=== PATIENT | male | born 1960 | race Caucasian/White ===

== ENCOUNTER → 2020-07-25 09:57 | Outpatient (BNVA) | payer SELFPAY | PROVIDERS: PCP Internal Medicine; Visit Provider Physician Assistant | DX: Z02.79 Encounter for issue of other medical certificate (principal) ==

== ENCOUNTER 2021-05-18 06:12 | Outpatient (REF) | payer BC, SELFPAY ==
[2021-05-18 11:28] LABS: MANUAL DIFF FLAG NO
[2021-05-18 11:36] LABS: Basophils Percent Auto 0.6 % (0-2); Eosinophils Absolute Auto 0.1 X10*3/uL (0.0-0.4); Eosinophils Percent Auto 2.7 % (0-4); Hematocrit 46.6 % (42-52); Hemoglobin 14.8 g/dl (14.0-18.0); Imm Gran Abs Auto 0.05 X10*3/uL (0.00-0.03); Lymphocytes Absolute Auto 1.3 X10*3/uL (1.2-4.9); Lymphocytes Percent Auto 24.7 % (20-40); Mean Corpuscular HGB Conc 31.8 g/dl (31.0-36.0); Mean Corpuscular Hemoglobin 29.2 pg (27.0-33.0); Mean Corpuscular Volume 92.1 fL (80-98); Mean Platelet Volume 10.4 fL (9.4-12.4); Monocytes Absolute Auto 0.6 X10*3/uL (0.1-1.2); Monocytes Percent Auto 11.7 % (2-11); Neutrophils Percent Auto 59.3 % (45-73); Platelet Count 274 X10*3/uL (160-400); Red Blood Count 5.06 X10*6/uL (4.60-5.80); Red Cell Distribution Width 13.4 % (11.0-16.0); White Blood Count 5.1 X10*3/uL (4.8-10.8)
[2021-05-18 11:46] LABS: Alanine Aminotransferase 27 U/L (0-40); Albumin Level 3.9 g/dL (3.5-5.0); Alkaline Phosphatase 76 U/L (39-117); Anion Gap 10 (12-20); Aspartate Amino Transferase 19 U/L (5-37); Bilirubin Total 0.6 mg/dL (0.0-1.0); Blood Urea Nitrogen 14 mg/dL (9-16); Calcium 9.1 mg/dL (8.4-10.2); Carbon Dioxide 29 mmol/L (22-29); Chloride 107 mmol/L (96-108); Cholesterol 202 mg/dL; Estimated Glomerular Filt Rate > 60; Glucose Fasting 95 mg/dL (60-99); HDL Cholesterol 56 mg/dL; LDL Cholesterol Calculated 132 mg/dl; Potassium 4.4 mmol/L (3.3-5.1); Sodium 142 mmol/L (135-145); Triglycerides 74 mg/dL
[2021-05-18 12:14] LABS: Prostate Specific Antigen Scr < 0.05 ng/mL (<0.05-4.0)
== END 2021-05-18 06:13 | disposition home or self-care (01) ==
LOC: HO.HMGCLDS 06:12
PROVIDERS: PCP Internal Medicine; Visit Provider Internal Medicine
DX: Z00.00 Encounter for general adult medical examination without abnormal findings (principal); E11.9 Type 2 diabetes mellitus without complications; E03.9 Hypothyroidism, unspecified; R35.1 Nocturia; Z12.5 Encounter for screening for malignant neoplasm of prostate
CPT/HCPCS: 36415; 80053; 80061; 84153; 84443; 85025

== ENCOUNTER 2022-07-09 06:56 | Outpatient (REF) | payer BC, SELFPAY ==
[2022-07-09 11:16] LABS: MANUAL DIFF FLAG NO
[2022-07-09 11:34] LABS: Basophils Percent Auto 0.9 % (0-2); Eosinophils Absolute Auto 0.1 X10*3/uL (0.0-0.4); Eosinophils Percent Auto 2.4 % (0-4); Hematocrit 45.1 % (42.0-52.0); Hemoglobin 14.9 g/dl (14.0-18.0); Imm Gran Abs Auto 0.05 X10*3/uL (0.00-0.03); Imm Gran Pct Auto 1.1 % (0.0-0.4); Lymphocytes Absolute Auto 1.1 X10*3/uL (1.2-4.9); Lymphocytes Percent Auto 23.5 % (20-40); Mean Corpuscular Hemoglobin 30.3 pg (27.0-33.0); Mean Corpuscular Volume 91.9 fL (80.0-98.0); Mean Platelet Volume 10.2 fL (9.4-12.4); Monocytes Absolute Auto 0.6 X10*3/uL (0.1-1.2); Neutrophils Absolute Auto 2.8 x10*3/uL (2.0-8.3); Neutrophils Percent Auto 60.1 % (45-73); Platelet Count 271 X10*3/uL (160-400); Red Blood Count 4.91 X10*6/uL (4.60-5.80); Red Cell Distribution Width 12.9 % (11.0-16.0); White Blood Count 4.7 X10*3/uL (4.8-10.8)
[2022-07-09 11:59] LABS: Alanine Aminotransferase 19 U/L (0-40); Alkaline Phosphatase 76 U/L (39-117); Anion Gap 13 (12-20); Aspartate Amino Transferase 18 U/L (5-37); Bilirubin Total 0.4 mg/dL (0.0-1.0); Blood Urea Nitrogen 18 mg/dL (9-16); Calcium 9.2 mg/dL (8.4-10.2); Carbon Dioxide 25 mmol/L (22-29); Chloride 107 mmol/L (96-108); Cholesterol 193 mg/dL; Estimated Glomerular Filt Rate > 60; Glucose Fasting 101 mg/dL (60-99); HDL Cholesterol 59 mg/dL; LDL Cholesterol Calculated 121 mg/dl; Potassium 4.4 mmol/L (3.3-5.1); Sodium 141 mmol/L (135-145); Total Protein 6.1 g/dL (6.5-8.0); Triglycerides 67 mg/dL
[2022-07-09 12:06] LABS: Prostate Specific Antigen Scr < 0.05 ng/mL (<0.05-4.0)
== END 2022-07-09 06:57 | disposition home or self-care (01) ==
LOC: HO.HMGCLDS 06:56
PROVIDERS: PCP Internal Medicine; Visit Provider Internal Medicine
DX: Z00.00 Encounter for general adult medical examination without abnormal findings (principal); E78.5 Hyperlipidemia, unspecified; I10 Essential (primary) hypertension; Z13.0 Encounter for screening for diseases of the blood and blood-forming organs and certain disorders involving the immune mechanism; Z12.5 Encounter for screening for malignant neoplasm of prostate
CPT/HCPCS: 36415; 80053; 80061; 84153; 85025

== ENCOUNTER 2022-12-24 06:23 | Day surgery (SDC) | payer BC, SELFPAY ==
--- NOTE | 2022-12-21 13:36 | P.CONAN_ITS ---
Documented by User: Ca Valente NP 12/21/22 13:37 HPI - Anesthesia Eval Consult details Narrative: 62yo M for Colonoscopy PMFSH Active Problems Active Problems: All Active Problems (Updated 05/28/22 @ 10:23 by Alberto Medellin MD) Physical exam (Acute) Erectile dysfunction (Acute) Chronic GERD (Acute) Past Medical History Medical History Chronic GERD Family History Family History Mother No problems noted. Father No problems noted. Surgical History Surgical History (Updated 12/24/22 @ 07:27 by Carolynn Browne MD) History of appendectomy History of bladder surgery History of inguinal hernia repair History of prostatectomy Hx of colonoscopy Social History Social History Housing: House Patient Tobacco Use Status: Former Tobacco user Tobacco use type: Cigarette e-Cigarette/Vaping Use: Never Used Second Hand Smoke Exposure: No Are you DNR?: No Advance Directives: No Advance Directives Information Provided: Yes Nutrition Risks: No Nutritional Risk service: Yes Current occupational status: employed Cognitive needs: No Hearing needs: No Vision needs: No Meds Allergies Allergy/AdvReac Type Severity Reaction Status Date / Time Penicillins [PENICILLINS] Allergy Severe ANAPHYLAXIS Verified 12/24/22 05:56 Home Medications Medication Instructions Recorded Confirmed Last Taken Type antiarthritic combination no.2 900 1,500 mg PO 05/17/21 05/28/22 Unknown History mg tablet (glucosamine-chondroitin) potassium gluconate 595 mg (99 mg) mg PO 05/17/21 05/28/22 Unknown History tablet,extended release naproxen 12/21/22 12/21/22 Unknown History Exam Exam Date and Time: December 21, 2022 1336 Pertinent Lab Results Pertinent Lab Results: Laboratory Tests 07/09/22 07/09/22 07:01 07:01 WBC 4.7 L Hgb 14.9 Hct 45.1 Plt Count 271 Sodium 141 Potassium 4.4 Chloride 107 Carbon Dioxide 25 BUN 18 H Creatinine 1.13 Assessment and Plan Assessment Anesthesia Assessment: Chart Reviewed Documented by User: Carolynn Browne MD 12/24/22 07:30 [facility] Past Medical History Medical History Chronic GERD Family History Family History Mother No problems noted. Father No problems noted. Family history of problems with anesthesia: No Surgical History Surgical History (Updated 12/24/22 @ 07:27 by Carolynn Browne MD) History of appendectomy History of bladder surgery History of inguinal hernia repair History of prostatectomy Hx of colonoscopy History of Problems with Anesthesia: No Social History Social History Housing: House Patient Tobacco Use Status: Former Tobacco user Tobacco use type: Cigarette e-Cigarette/Vaping Use: Never Used Second Hand Smoke Exposure: No Are you DNR?: No Advance Directives: No Advance Directives Information Provided: Yes Nutrition Risks: No Nutritional Risk service: Yes Current occupational status: employed Cognitive needs: No Hearing needs: No Vision needs: No Meds Allergies Allergy/AdvReac Type Severity Reaction Status Date / Time Penicillins [PENICILLINS] Allergy Severe ANAPHYLAXIS Verified 12/24/22 05:56 Home Medications Medication Instructions Recorded Confirmed Last Taken Type antiarthritic combination no.2 900 1,500 mg PO 05/17/21 05/28/22 Unknown History mg tablet (glucosamine-chondroitin) potassium gluconate 595 mg (99 mg) mg PO 05/17/21 05/28/22 Unknown History tablet,extended release naproxen 12/21/22 12/21/22 Unknown History Exam Height,Weight and Vital Signs: Height 5 ft 7 in Weight 69.4 kg Vital Signs Temp Pulse Resp BP Pulse Ox O2 Del Method 12/24/22 06:53 97.9 F 62 18 124/77 98 Room Air Airway Mallampati Class: II TM Dist: >3cm Neck ROM: Full Loose/Missing/Broken Teeth: No (Denies broken, loose, missing teeth) Heart: RRR Lungs: CTAB Assessment and Plan Assessment Anesthesia Assessment: Anesthesia Plan Discussed Final Anesthetic Review Family History of Problems with Anesthesia: No History of Problems with Anesthesia: No NPO: Yes ASA Class: II Final Preanesthetic Review: No Changes in Pt Med Stat, Meds/Allgs Chart Reviewed, Consent Obtained/Reviewed and Anes Risks/Benef Reviewed Patient Risk: Low Procedure Risk: Low Assessment/Block/Sedation in SS: Assess/Block/Sedation-SS Anesthetic Plan Anesthetic Plan: MAC: Disposition: Standard PACU
[2022-12-24 06:15] VITALS: BMI 23.9
[2022-12-24] MEDS: Lactated Ringers 1,000 ML 100 ML IVCONT (06:28)
[2022-12-24 06:53] VITALS: BP 124/77; PULSE 62; RESP 18; TEMP 36.6; O2SAT 98
--- NOTE | 2022-12-24 08:24 | PM.OP ---
Brief Operative Note Date of Service: 12/24/22 Pre-op diagnosis: Screening Post-op diagnosis: other (Diverticulosis) Procedure: Colonoscopy to the cecum Surgeon: Manuel Romano Anesthesia: MAC Was an Group Art Supervisor used for this Procedure?: No Estimated blood loss (mL): 0 Pathology: none sent Condition: stable Disposition: PACU
[2022-12-24 08:27] VITALS: BP 108/64; PULSE 77; RESP 16; TEMP 36.6; O2SAT 97
[2022-12-24 08:42] VITALS: BP 122/71; PULSE 51; RESP 16; TEMP 36.6; O2SAT 98
--- NOTE | 2022-12-24 09:22 | OP_ITS ---
SURGEON: Manuel Romano MD PREOPERATIVE DIAGNOSIS: POSTOPERATIVE DIAGNOSIS: PROCEDURE PERFORMED: Colonoscopy to the cecum. ESTIMATED BLOOD LOSS: COMPLICATIONS: ANESTHESIA: Monitored anesthesia care. ASSISTANTS: SPECIMENS: PREOPERATIVE DIAGNOSES: Personal history of tubular adenoma of the colon, family history of colon cancer and colorectal cancer screening. PREOPERATIVE DIAGNOSES: Personal history of tubular adenoma of the colon, family history of colon cancer, colorectal cancer screening, diverticulosis and internal hemorrhoids. INDICATION: The patient presents for followup of personal history of tubular adenoma of the colon, family history of colon cancer and need for colorectal cancer screening. Full consent has been obtained from him for this, including risks of bleeding and perforation. DESCRIPTION OF PROCEDURE: The patient was placed in the left lateral decubitus position. The digital rectal exam revealed no abnormalities. The Olympus video pediatric colonoscope was then entered into the rectum and advanced easily to the cecum. Once in the cecum, I did identify normal-appearing cecal pouch with appendiceal orifice and normal-appearing ileocecal valve. The entire cecum was well visualized and appeared normal. The ileocecal valve appeared normal. There was translumination in the light deep in the right lower quadrant. The scope was slowly withdrawn, assessing all mucosal surfaces carefully. Preparation was excellent. I did not visualize any sign of polyps, colitis nor angiodysplasia. There was a mild amount of sigmoid diverticulosis. In the rectum, the scope was retroflexed visualizing internal hemorrhoids, but no other pathology. The rectal mucosa appeared normal. The scope was straightened and withdrawn from the patient. He tolerated the procedure well and was returned to the recovery area in stable condition. IMPRESSION: 1. Diverticulosis. 2. Internal hemorrhoids. PLAN: I would recommend a repeat colonoscopy in 5 years for further screening and surveillance. He would otherwise see me on a p.r.n. basis. This has been discussed with his . MD ARNULFO Roe/PAOLO / [id number] MTDMahamed
== END 2022-12-24 09:10 | disposition home or self-care (01) ==
PROVIDERS: PCP Internal Medicine; Visit Provider Internal Medicine
PROC: 0DJD8ZZ Inspection of Lower Intestinal Tract, Via Natural or Artificial Opening Endoscopic (ICD-10-PCS; CPT 45378; principal; 2022-12-24 07:30)
DX: Z12.11 Encounter for screening for malignant neoplasm of colon (principal); Z86.010 Personal history of colon polyps; Z80.0 Family history of malignant neoplasm of digestive organs; K57.30 Diverticulosis of large intestine without perforation or abscess without bleeding; K64.8 Other hemorrhoids; K21.9 Gastro-esophageal reflux disease without esophagitis; Z85.46 Personal history of malignant neoplasm of prostate; Z90.79 Acquired absence of other genital organ(s); Z79.899 Other long term (current) drug therapy; Z79.1 Long term (current) use of non-steroidal anti-inflammatories (NSAID); Z88.0 Allergy status to penicillin; Z87.891 Personal history of nicotine dependence
CPT/HCPCS: 45378

== ENCOUNTER 2023-04-29 13:25 | Outpatient (AMB) | payer BC, SELFPAY ==
--- NOTE | 2023-04-29 13:30 | MHC.PC.OV ---
Vital Signs 04/29/23 13:33 Height 5 ft 7 in Weight 147 lb 6 oz BMI 23.1 BP 110/70 Blood Pressure Location Lt brachial Position Sitting Pulse 67 Pulse Source Pulse Oximeter Pulse Oximetry (%) 96 Oxygen Delivery Method Room Air Intake Visit Reasons: Burning Sensation While Urinating Intake Note: Patient is here today for burning sensation while urinating, and urgent frequency. Livestock Handler Required: No Proposal Director: Not Required per policy Accompanied by: Self / Same As Patient Allergies Penicillins [PENICILLINS] Allergy (Severe, Verified 04/29/23 13:33) ANAPHYLAXIS Medication List - Last Reconciled 04/29/23 by Alberto Medellin MD antiarthritic combination no.2 (glucosamine-chondroitin) 1,500 mg PO ciprofloxacin HCl (Cipro) 250 mg PO BID clotrimazole-betamethasone 1-0.05 % 1 appl topical BID 2 weeks doxycycline hyclate 100 mg PO DAILY [naproxen ] omeprazole 20 mg PO QAM potassium gluconate ER mg PO sildenafil 100 mg PO DAILY PRN triamcinolone acetonide 0.1% 1 appl topical DAILY Tobacco use date assessed: 04/29/23 Dental Screening Dental Screen Date: 04/29/23 Did you have a dental visit in the last 12 months?: Yes Did you have a dental problem in the last 6 months where you did not have access to dental care?: No Was dental information given to patient?: Patient has dentist HPI Burning Sensation While Urinating HPI Details dysuria for 2 days [facility] Medical History (Updated 04/29/23 @ 13:46 by Alberto Medellin MD) Chronic GERD Surgical History History of appendectomy History of bladder surgery History of inguinal hernia repair History of prostatectomy Hx of colonoscopy Family History Mother No problems noted. Father No problems noted. Social History Housing: House Patient Tobacco Use Status: Former Tobacco user Tobacco use type: Cigarette e-Cigarette/Vaping Use: Never Used Second Hand Smoke Exposure: No service: Yes Current occupational status: employed Cognitive needs: No Hearing needs: No Vision needs: Yes (glasses) Questionnaire PHQ-9 Over the last 2 weeks, how often have you been bothered by any of the following problems? 1. Little interest or pleasure in doing things: not at all 2. Feeling down, depressed, or hopeless: not at all 3. Trouble falling or staying asleep, or sleeping too much: not at all 4. Feeling tired or having little energy: not at all 5. Poor appetite or overeating: not at all 6. Feeling bad about yourself - or that you are a failure or have let yourself or your family down: not at all 7. Trouble concentrating on things, such as reading the newspaper or watching television: not at all 8. Moving or speaking so slowly that other people could have noticed. Or the opposite - being so fidgety or restless that you have been moving around a lot more than usual: not at all 9. Thoughts that you would be better off or of hurting yourself in some way: not at all Total score: 0 Depression Screening Interpretation: Negative Source: Developed by Drs. Manuel Sparks, Sarina Garcia, Ralph Valencia and colleagues, with an educational robert from [employer]. Thrive Questionnaire Date Thrive assessed: 04/29/23 I am a: Patient What is your living situation today?: I have a steady place to live Within the past 12 months, did the food you bought not last and you didn't have the money to get more?: Never true Within the past 12 months, did you worry whether your food would run out before you got money to buy more?: Never true Do you have trouble paying for medicines?: No Do you have trouble getting transportation to medical appointments?: No Do you have trouble paying your heating and electricity bill?: No Do you have trouble taking care of your child, family member or friend?: No Do you have trouble with day-to-day activities such as bathing, preparing meals, shopping, managing finances, etc.?: No Are you currently unemployed and looking for a job?: No Are you interested in more education?: No Currently or been in a relationship where the following occur: no concerns reported AUDIT C Alcohol Use Questionnaire (AUDIT-C) 1. How often do you have a drink containing alcohol?: Never Total Score: 0 TAMIA-7 AMB Questionnaire TAMIA-7 Date TAMIA - 7 assessed: 04/29/23 Feeling nervous, anxious, or on edge: 0 = Not at all Not being able to stop or control worryin = Not at all Worrying too much about different things: 0 = Not at all Trouble relaxin = Not at all Being so restless that it is hard to sit still: 0 = Not at all Becoming easily annoyed or irritable: 0 = Not at all Feeling afraid as if something awful might happen: 0 = Not at all Total TAMIA-7 score (0-4 normal; 5-9 mild; 10-14 moderate; 15-21 severe): 0 Source: Developed by Drs. Manuel Sparks, Sarina Garcia, Ralph Valencia and colleagues, with an educational robert from [employer]. Review of Systems Const Denies chills, Denies headache(s) and Denies weight loss ENT Denies headache(s) Card Denies chest pain, Denies syncope, Denies irregular heart rhythm and Denies dyspnea Resp Denies chest congestion, Denies cough and Denies dyspnea GI Denies abdominal pain, Denies change in stool character, Denies nausea and Denies vomiting Musc Denies deformity and Denies joint swelling Neuro Denies syncope and Denies headache(s) Physical exam (Primary Care) Vital Signs: Last Vital Signs Pulse 67 04/29/23 13:33 BP 110/70 04/29/23 13:33 Pulse Ox 96 04/29/23 13:33 Oxygen Delivery Method Room Air 04/29/23 13:33 BMI result Body Mass Index 23.1 Tobacco/Smoking Status: Tobacco use Status Tobacco use date assessed 04/29/23 04/29/23 13:38 Patient Tobacco Use Status Former Tobacco user 04/29/23 13:38 Tobacco use type Cigarette 04/29/23 13:38 e-Cigarette/Vaping Use Never Used 04/29/23 13:38 PHQ-9: PHQ-9 Score PHQ-9: Total score 0 04/29/23 13:38 Depression Screening Interpretation: Negative Thrive Assessment: Date of Thrive Assessment Date Thrive assessed 04/29/23 04/29/23 13:38 Currently or been in a relationship where the following occur: no concerns reported Const General: cooperative, healthy appearing and no acute distress Orientation/consciousness: oriented to person, oriented to place and oriented to time HENMT Head: Yes normal to inspection, Yes normocephalic and Yes atraumatic Mouth: Normal oral and palatal mucosa present and tongue normal Throat: Yes posterior oropharynx normal and Yes uvula midline Eyes General: appearance normal, both eyes and all related structures Neck Neck: Yes normal visual inspection, Yes full ROM and Yes no lymphadenopathy Thyroid: Thyroid normal Carotids: normal carotid upstroke Chest Chest palpation & inspection: normal inspection of the chest Resp Effort & Inspection: normal respiratory effort and able to speak in complete sentences Auscultation: clear to auscultation bilaterally Cardio Jugular venous distension: no JVD Palpation: normal PMI Rate: regular rate Rhythm: regular rhythm Heart sounds: S1 normal heart sound present and S2 normal heart sound present GI Inspection: Yes normal to inspection Palpation (GI): Soft to palpation and No hepatosplenomegaly present Auscultation: normal bowel sounds General: Yes no CVA tenderness Back/Spine/Pelvis Back: no CVA tenderness Skin General skin exam: no rashes or lesions noted Neuro General: oriented to person, oriented to place and oriented to time Extrem General: Yes normal to inspection and Yes full ROM Assessment and Plan Assessment & Plan (1) UTI (urinary tract infection): Code(s): N39.0 - Urinary tract infection, site not specified Plan: culture and rx Orders: Orders Urine Culture Today N39.0 - Urinary tract infection, site not specified Medications: New ciprofloxacin HCl (Cipro) 250 mg PO BID 10 tabs 0RF Coding Level of Care Code Est Pt Level 3 (37525) Diagnoses UTI (urinary tract infection) N39.0
[2023-04-29 13:33] VITALS: BP 110/70; PULSE 67; O2SAT 96; BMI 23.1
== END 2023-04-29 14:08 | disposition home or self-care (01) ==
PROVIDERS: PCP Internal Medicine; Visit Provider Internal Medicine
DX: N39.0 Urinary tract infection, site not specified (principal)
CPT/HCPCS: 99213

== ENCOUNTER 2023-04-29 13:51 | Outpatient (REF) | payer BC, SELFPAY | END 2023-04-29 13:52 | disposition home or self-care (01) | LOC: HO.LAB 13:51 | PROVIDERS: PCP Internal Medicine; Visit Provider Internal Medicine | DX: N39.0 Urinary tract infection, site not specified (principal) | CPT/HCPCS: 87086 ==

== ENCOUNTER 2023-06-03 08:47 | Outpatient (AMB) | payer BC, SELFPAY ==
[2023-06-03 09:05] VITALS: BP 120/64; PULSE 61; O2SAT 97; BMI 23.4
--- NOTE | 2023-06-03 09:05 | MHC.PC.OV ---
Vital Signs 06/03/23 09:05 Height 5 ft 7 in Weight 149 lb 2 oz BMI 23.4 BP 120/64 Blood Pressure Location Lt brachial Position Sitting Pulse 61 Pulse Source Pulse Oximeter Pulse Oximetry (%) 97 Oxygen Delivery Method Room Air Intake Visit Reasons: annual exam Intake Note: Patient is here today for a physical. Complaint of uti on going for 3 weeks Civil Engineer In Training Required: No Training Development Specialist: Not Required per policy Accompanied by: Self / Same As Patient Allergies Penicillins [PENICILLINS] Allergy (Severe, Verified 06/03/23 09:05) ANAPHYLAXIS Medication List - Last Reconciled 06/03/23 by Alberto Medellin MD antiarthritic combination no.2 (glucosamine-chondroitin) 1,500 mg PO clotrimazole-betamethasone 1-0.05 % 1 appl topical BID 2 weeks doxycycline hyclate 100 mg PO DAILY [naproxen ] omeprazole 20 mg PO QAM potassium gluconate ER mg PO sildenafil 100 mg PO DAILY PRN triamcinolone acetonide 0.1% 1 appl topical DAILY Tobacco use date assessed: 06/03/23 HPI annual exam HPI Details prostate cancer in remission; frequent utis PFSH Medical History (Updated 06/03/23 @ 09:32 by Alberto Medellin MD) Chronic GERD Surgical History History of appendectomy History of bladder surgery History of inguinal hernia repair History of prostatectomy Hx of colonoscopy Family History Mother No problems noted. Father No problems noted. Social History (Updated 06/03/23 @ 09:10 by JAYCE Fofana) Housing: House Alcohol intake: former Patient Tobacco Use Status: Former Tobacco user Tobacco use type: Cigarette e-Cigarette/Vaping Use: Never Used Second Hand Smoke Exposure: No service: Yes Current occupational status: employed Cognitive needs: No Hearing needs: No Vision needs: Yes (glasses) Questionnaire Thrive Questionnaire Date Thrive assessed: 04/29/23 TAMIA-7 AMB Questionnaire TAMIA-7 Date TAMIA - 7 assessed: 04/29/23 Source: Developed by Drs. Manuel Sparks, Sarina Garcia, Ralph Valencia and colleagues, with an educational robert from [employer]. Review of Systems Const Denies chills, Denies fatigue, Denies headache(s) and Denies weight loss Eyes Denies change in vision, Denies diplopia and Denies eye pain ENT Denies vertigo, Denies dizziness, Denies headache(s) and Denies nasal discharge Card Denies chest pain, Denies rapid heart rate and Denies dyspnea on exertion Resp Denies chest congestion, Denies cough, Denies pain with cough and Denies dyspnea on exertion GI Denies abdominal pain, Denies hematochezia and Denies change in bowel habits Musc Denies myalgias, Denies arthralgias and Denies joint swelling Skin/Breast Denies lesions and Denies unusual bruising Neuro Denies vertigo, Denies dizziness, Denies headache(s) and Denies focal weakness Endo Denies fatigue Physical exam (Primary Care) Vital Signs: Last Vital Signs Pulse 61 06/03/23 09:05 BP 120/64 06/03/23 09:05 Pulse Ox 97 06/03/23 09:05 Oxygen Delivery Method Room Air 06/03/23 09:05 BMI result Body Mass Index 23.4 Tobacco/Smoking Status: Tobacco use Status Tobacco use date assessed 06/03/23 06/03/23 09:11 Patient Tobacco Use Status Former Tobacco user 06/03/23 09:11 Tobacco use type Cigarette 06/03/23 09:11 e-Cigarette/Vaping Use Never Used 06/03/23 09:11 Thrive Assessment: Date of Thrive Assessment Date Thrive assessed 04/29/23 06/03/23 09:11 Const General: cooperative, healthy appearing and no acute distress Orientation/consciousness: oriented to person, oriented to place and oriented to time [facility] Head: Yes normal to inspection, Yes normocephalic and Yes atraumatic Mouth: Normal oral and palatal mucosa present and tongue normal Throat: Yes posterior oropharynx normal and Yes uvula midline Eyes General: appearance normal, both eyes and all related structures Neck Neck: Yes normal visual inspection, Yes full ROM and Yes no lymphadenopathy Thyroid: Thyroid normal Carotids: normal carotid upstroke Chest Chest palpation & inspection: normal inspection of the chest Resp Effort & Inspection: normal respiratory effort and able to speak in complete sentences Auscultation: clear to auscultation bilaterally Cardio Jugular venous distension: no JVD Palpation: normal PMI Rate: regular rate Rhythm: regular rhythm Heart sounds: S1 normal heart sound present and S2 normal heart sound present GI Inspection: Yes normal to inspection Palpation (GI): Soft to palpation and No hepatosplenomegaly present Auscultation: normal bowel sounds General: Yes no CVA tenderness Back/Spine/Pelvis Back: no CVA tenderness Skin General skin exam: no rashes or lesions noted Neuro General: oriented to person, oriented to place and oriented to time Extrem General: Yes normal to inspection and Yes full ROM Assessment and Plan Assessment & Plan (1) Physical exam: Code(s): Z00.00 - Encounter for general adult medical examination without abnormal findings Plan: stable; labs (2) UTI (urinary tract infection): Code(s): N39.0 - Urinary tract infection, site not specified Plan: ref urol (3) History of prostate cancer: Code(s): Z85.46 - Personal history of malignant neoplasm of prostate Plan: psa Orders: Orders Comprehensive [place]. Panel Fast Today N28.9 - Disorder of kidney and ureter, unspecified Lipid Panel Today E78.5 - Hyperlipidemia, unspecified Prostate Specific Antigen Scr Today Z00.00 - Encounter for general adult medical examination without abnormal findings Thyroid Stimulating Hormone Today E03.9 - Hypothyroidism, unspecified Complete Blood Count Auto Diff Today D64.9 - Anemia, unspecified Referrals Urology Referral N39.0 - Urinary tract infection, site not specified, Z85.46 - Personal history of malignant neoplasm of prostate Medications: New ciprofloxacin HCl (Cipro) 250 mg PO BID 10 tabs 0RF Refilled sildenafil administer 30 minutes to 4 hours before activity 100 mg PO DAILY PRN 30 tabs 8RF sexual activity Coding Level of Care Code Est Pt Prev Care 40-64y(29279) Diagnoses Physical exam Z00.00 UTI (urinary tract infection) N39.0 History of prostate cancer Z85.46
== END 2023-06-03 09:28 | disposition home or self-care (01) ==
PROVIDERS: PCP Internal Medicine; Visit Provider Internal Medicine
DX: Z00.00 Encounter for general adult medical examination without abnormal findings (principal); N39.0 Urinary tract infection, site not specified; Z85.46 Personal history of malignant neoplasm of prostate
CPT/HCPCS: 99396

== ENCOUNTER 2023-06-04 06:38 | Outpatient (REF) | payer BC, SELFPAY ==
[2023-06-04 11:37] LABS: MANUAL DIFF FLAG NO
[2023-06-04 11:57] LABS: Basophils Percent Auto 0.9 % (0-2); Eosinophils Absolute Auto 0.1 X10*3/uL (0.0-0.4); Eosinophils Percent Auto 2.1 % (0-4); Hemoglobin 14.7 g/dl (14.0-18.0); Imm Gran Abs Auto 0.04 X10*3/uL (0.00-0.03); Imm Gran Pct Auto 0.9 % (0.0-0.4); Lymphocytes Absolute Auto 1.2 X10*3/uL (1.2-4.9); Lymphocytes Percent Auto 25.4 % (20-40); Mean Corpuscular HGB Conc 32.7 g/dl (31.0-36.0); Mean Corpuscular Hemoglobin 29.6 pg (27.0-33.0); Mean Corpuscular Volume 90.5 fL (80.0-98.0); Mean Platelet Volume 10.2 fL (9.4-12.4); Monocytes Absolute Auto 0.7 X10*3/uL (0.1-1.2); Monocytes Percent Auto 14.1 % (2-11); Neutrophils Absolute Auto 2.7 x10*3/uL (2.0-8.3); Neutrophils Percent Auto 56.6 % (45-73); Platelet Count 268 X10*3/uL (160-400); Red Blood Count 4.97 X10*6/uL (4.60-5.80); Red Cell Distribution Width 13.3 % (11.0-16.0); White Blood Count 4.7 X10*3/uL (4.8-10.8)
[2023-06-04 12:24] LABS: Prostate Specific Antigen Scr < 0.10 ng/mL (<0.05-4.0)
[2023-06-04 12:31] LABS: Alanine Aminotransferase 23 U/L (0-40); Albumin Level 3.9 g/dL (3.5-5.0); Alkaline Phosphatase 74 U/L (39-117); Anion Gap 11 (12-20); Aspartate Amino Transferase 20 U/L (5-37); Bilirubin Total 0.4 mg/dL (0.0-1.0); Blood Urea Nitrogen 18 mg/dL (9-16); Calcium 9.3 mg/dL (8.4-10.2); Carbon Dioxide 27 mmol/L (22-29); Chloride 108 mmol/L (96-108); Cholesterol 203 mg/dL (<200); Estimated Glomerular Filt Rate > 60; Glucose Fasting 99 mg/dL (60-99); HDL Cholesterol 59 mg/dL (>40); LDL Cholesterol Calculated 130 mg/dL (<100); Potassium 4.7 mmol/L (3.3-5.1); Sodium 141 mmol/L (135-145); Thyroid Stimulating Hormone 1.86 uIU/mL (0.32-4.0); Total Protein 6.4 g/dL (6.5-8.0); Triglycerides 71 mg/dL (<150)
== END 2023-06-04 06:39 | disposition home or self-care (01) ==
LOC: HO.HMGCLDS 06:38
PROVIDERS: PCP Internal Medicine; Visit Provider Internal Medicine
DX: Z00.00 Encounter for general adult medical examination without abnormal findings (principal); Z12.5 Encounter for screening for malignant neoplasm of prostate; D64.9 Anemia, unspecified; E78.5 Hyperlipidemia, unspecified; N28.9 Disorder of kidney and ureter, unspecified; E03.9 Hypothyroidism, unspecified
CPT/HCPCS: 36415; 80053; 80061; 84153; 84443; 85025

== ENCOUNTER 2024-07-13 08:53 | Outpatient (AMB) | payer BC, SELFPAY ==
[2024-07-13 08:55] VITALS: BP 126/64; PULSE 61; O2SAT 95; BMI 23.0
--- NOTE | 2024-07-13 08:55 | MHC.PC.OV ---
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 Accompanied by: Self / Same As Patient Allergies Penicillins [PENICILLINS] Allergy (Severe, Verified 06/03/23 09:05) ANAPHYLAXIS Medication List - Last Reconciled 07/13/24 by Alberto Medellin MD antiarthritic combination no.2 (glucosamine-chondroitin) 1,500 mg PO ciprofloxacin HCl (Cipro) 250 mg PO BID clotrimazole-betamethasone 1-0.05 % 1 appl topical BID 2 weeks doxycycline hyclate 100 mg PO DAILY [naproxen ] omeprazole 20 mg PO QAM potassium gluconate ER mg PO sildenafil 100 mg PO DAILY PRN triamcinolone acetonide 0.1% 1 appl topical DAILY Tobacco use date assessed: 07/13/24 Fall risk assessment: No Falls in past year Last assessed Fall Risk: 07/13/24 Dental Screening Dental Screen Date: 07/13/24 Did you have a dental visit in the last 12 months?: Yes Did you have a dental problem in the last 6 months where you did not have access to dental care?: No Was dental information given to patient?: Patient has dentist HPI Annual Exam HPI Details healthy; s/p prostatectomy for CA; no recurrence [facility] Medical History (Updated 06/03/23 @ 09:32 by Alberto Medellin MD) Chronic GERD Surgical History History of appendectomy History of bladder surgery History of inguinal hernia repair History of prostatectomy Hx of colonoscopy Family History Mother No problems noted. Father No problems noted. Social History (Updated 06/03/23 @ 09:10 by JAYCE Fofana) Housing: House Alcohol intake: former Patient Tobacco Use Status: Former Tobacco user Tobacco use type: Cigarette e-Cigarette/Vaping Use: Never Used Second Hand Smoke Exposure: No service: Yes Current occupational status: employed Cognitive needs: No Hearing needs: No Vision needs: Yes (glasses) Questionnaire PHQ-9 Over the last 2 weeks, how often have you been bothered by any of the following problems? 1. Little interest or pleasure in doing things: not at all 2. Feeling down, depressed, or hopeless: not at all 3. Trouble falling or staying asleep, or sleeping too much: not at all 4. Feeling tired or having little energy: not at all 5. Poor appetite or overeating: not at all 6. Feeling bad about yourself - or that you are a failure or have let yourself or your family down: not at all 7. Trouble concentrating on things, such as reading the newspaper or watching television: not at all 8. Moving or speaking so slowly that other people could have noticed. Or the opposite - being so fidgety or restless that you have been moving around a lot more than usual: not at all 9. Thoughts that you would be better off or of hurting yourself in some way: not at all Total score: 0 Source: Developed by Drs. Manuel Sparks, Sarina Garcia, Ralph Valencia and colleagues, with an educational robert from [employer]. Thrive Questionnaire Date Thrive assessed: 07/13/24 I am a: Patient What is your living situation today?: I have a steady place to live Within the past 12 months, did the food you bought not last and you didn't have the money to get more?: Never true Within the past 12 months, did you worry whether your food would run out before you got money to buy more?: Never true Do you have trouble paying for medicines?: No Do you have trouble getting transportation to medical appointments?: No Do you have trouble paying your heating and electricity bill?: No Do you have trouble taking care of your child, family member or friend?: No Do you have trouble with day-to-day activities such as bathing, preparing meals, shopping, managing finances, etc.?: No Are you currently unemployed and looking for a job?: No Are you interested in more education?: No Please select the resources that you would like help with: None Currently or been in a relationship where the following occur: No concerns reported THRIVE Score: 0 AUDIT C Alcohol Use Questionnaire (AUDIT-C) 1. How often do you have a drink containing alcohol?: Never Total Score: 0 TAMIA-7 AMB Questionnaire TAMIA-7 Date TAMIA - 7 assessed: 07/13/24 Feeling nervous, anxious, or on edge: 0 = Not at all Not being able to stop or control worryin = Not at all Worrying too much about different things: 0 = Not at all Trouble relaxin = Not at all Being so restless that it is hard to sit still: 0 = Not at all Becoming easily annoyed or irritable: 0 = Not at all Feeling afraid as if something awful might happen: 0 = Not at all Total TAMIA-7 score (0-4 normal; 5-9 mild; 10-14 moderate; 15-21 severe): 0 Source: Developed by Drs. Manuel Sparks, Sarina Garcia, Ralph Valencia and colleagues, with an educational robert from [employer]. Review of Systems Const Denies chills, Denies fatigue, Denies headache(s) and Denies weight loss Eyes Denies change in vision, Denies diplopia and Denies eye pain ENT Denies vertigo, Denies dizziness, Denies headache(s) and Denies nasal discharge Card Denies chest pain, Denies rapid heart rate and Denies dyspnea on exertion Resp Denies chest congestion, Denies cough, Denies pain with cough and Denies dyspnea on exertion GI Denies abdominal pain, Denies hematochezia and Denies change in bowel habits Musc Denies myalgias, Denies arthralgias and Denies joint swelling Skin/Breast Denies lesions and Denies unusual bruising Neuro Denies vertigo, Denies dizziness, Denies headache(s) and Denies focal weakness Endo Denies fatigue Physical exam (Primary Care) Vital Signs: Last Vital Signs Pulse 61 07/13/24 08:55 BP 126/64 07/13/24 08:55 Pulse Ox 95 07/13/24 08:55 Oxygen Delivery Method Room Air 07/13/24 08:55 BMI result Body Mass Index 23.0 Tobacco/Smoking Status: Tobacco use Status Tobacco use date assessed 07/13/24 07/13/24 09:01 Patient Tobacco Use Status Former Tobacco user 07/13/24 09:01 Tobacco use type Cigarette 07/13/24 09:01 e-Cigarette/Vaping Use Never Used 07/13/24 09:01 PHQ-9: PHQ-9 Score PHQ-9: Total score 0 07/13/24 09:12 Thrive Assessment: Date of Thrive Assessment Date Thrive assessed 07/13/24 07/13/24 09:01 Currently or been in a relationship where the following occur: No concerns reported Const General: cooperative, healthy appearing and no acute distress Orientation/consciousness: oriented to person, oriented to place and oriented to time HENMT Head: Yes normal to inspection, Yes normocephalic and Yes atraumatic Mouth: Normal oral and palatal mucosa present and tongue normal Throat: Yes posterior oropharynx normal and Yes uvula midline Eyes General: appearance normal, both eyes and all related structures Neck Neck: Yes normal visual inspection, Yes full ROM and Yes no lymphadenopathy Thyroid: Thyroid normal Carotids: normal carotid upstroke Chest Chest palpation & inspection: normal inspection of the chest Resp Effort & Inspection: normal respiratory effort and able to speak in complete sentences Auscultation: clear to auscultation bilaterally Cardio Jugular venous distension: no JVD Palpation: normal PMI Rate: regular rate Rhythm: regular rhythm Heart sounds: S1 normal heart sound present and S2 normal heart sound present GI Inspection: Yes normal to inspection Palpation (GI): Soft to palpation and No hepatosplenomegaly present Auscultation: normal bowel sounds General: Yes no CVA tenderness Back/Spine/Pelvis Back: no CVA tenderness Skin Other: sebaceous cyst chest wall Neuro General: oriented to person, oriented to place and oriented to time Extrem General: Yes normal to inspection and Yes full ROM Office Procedures Flu Questionnaire Does the patient have a severe egg allergy?: No Does the patient have severe life threatening allergies?: No Does the patient have a fever or illness today?: No Has the patient ever had Guillain-Tea Syndrome?: No Has the patient ever had any past reaction to a flu shot?: No Immunizations Fluarix Triv [id number] (PF) 45 mcg (15 mcg x 3)/0.5 mL IM syringe Performing Provider: Alberto Medellin MD [facility] Administered by: Medina Bills LPN on 07/13/24 09:13 Dose Route Admin Location Dispensed Lot Number Expiration Date [facility] Escalator Constructor 0.5 mL IM Left Deltoid 0.5 mL [id number] 04/05/25 21091-864-58 [employer] VIS Given Date VIS Provided VIS Publication Date 07/13/24 Single Vaccine 21 Eligibility Eligibility Date Funding Source Not [facility] Eligible 07/13/24 Private Coding Level of Care Code Est Pt Prev Care >65y(09851) Diagnoses Physical exam Z00.00 Sebaceous cyst L72.3 Assessment & Plan Assessment & Plan (1) Physical exam: Code(s): Z00.00 - Encounter for general adult medical examination without abnormal findings Category: Medical Plan: stable; do labs (2) Sebaceous cyst: Code(s): L72.3 - Sebaceous cyst Plan: ref surgery Orders: Orders Comprehensive Valentines. Panel Fast Today Z13.9 - Encounter for screening, unspecified Influenza [id number] Immunization Today Z23 - Encounter for immunization Lipid Panel Today Z13.220 - Encounter for screening for lipoid disorders Thyroid Stimulating Hormone Today Z13.29 - Encounter for screening for other suspected endocrine disorder Complete Blood Count Auto Diff Today Z13.0 - Encounter for screening for diseases of the blood and blood-forming organs and certain disorders involving the immune mechanism Prostate Specific Antigen Scr Today Z00.00 - Encounter for general adult medical examination without abnormal findings Referrals General Surgery Referral L72.3 - Sebaceous cyst
== END 2024-07-13 09:39 | disposition home or self-care (01) ==
PROVIDERS: PCP Internal Medicine; Visit Provider Internal Medicine
DX: Z00.00 Encounter for general adult medical examination without abnormal findings (principal); L72.3 Sebaceous cyst; Z23 Encounter for immunization

== ENCOUNTER → 2024-07-13 08:53 | Outpatient (BNVA) | payer BC, SELFPAY | PROVIDERS: PCP Internal Medicine; Visit Provider Internal Medicine | DX: Z00.01 Encounter for general adult medical examination with abnormal findings (principal); L72.3 Sebaceous cyst; Z23 Encounter for immunization | CPT/HCPCS: 90471; 90656; 96127 ==

== ENCOUNTER 2024-07-14 07:11 | Outpatient (REF) | payer BC, SELFPAY ==
[2024-07-14 10:03] LABS: MANUAL DIFF FLAG NO
[2024-07-14 10:13] LABS: Basophils Percent Auto 0.9 % (0-2); Eosinophils Absolute Auto 0.1 X10*3/uL (0.0-0.4); Eosinophils Percent Auto 1.4 % (0-4); Hematocrit 47.7 % (42.0-52.0); Hemoglobin 15.7 g/dl (14.0-18.0); Imm Gran Abs Auto 0.02 X10*3/uL (0.00-0.03); Imm Gran Pct Auto 0.5 % (0.0-0.4); Lymphocytes Percent Auto 21.9 % (20-40); Mean Corpuscular HGB Conc 32.9 g/dl (31.0-36.0); Mean Corpuscular Hemoglobin 29.9 pg (27.0-33.0); Mean Corpuscular Volume 90.9 fL (80.0-98.0); Mean Platelet Volume 9.8 fL (9.4-12.4); Monocytes Absolute Auto 0.5 X10*3/uL (0.1-1.2); Monocytes Percent Auto 12.4 % (2-11); Neutrophils Absolute Auto 2.7 x10*3/uL (2.0-8.3); Neutrophils Percent Auto 62.9 % (45-73); Platelet Count 260 X10*3/uL (160-400); Red Blood Count 5.25 X10*6/uL (4.60-5.80); Red Cell Distribution Width 13.5 % (11.0-16.0); White Blood Count 4.3 X10*3/uL (4.8-10.8)
[2024-07-14 10:40] LABS: Alanine Aminotransferase 24 U/L (0-40); Albumin Level 4.1 g/dL (3.5-5.0); Alkaline Phosphatase 67 U/L (39-117); Anion Gap 11 (12-20); Aspartate Amino Transferase 20 U/L (5-37); Bilirubin Total 0.5 mg/dL (0.0-1.0); Blood Urea Nitrogen 22 mg/dL (9-16); Calcium 9.3 mg/dL (8.4-10.2); Carbon Dioxide 28 mmol/L (22-29); Chloride 107 mmol/L (96-108); Cholesterol 214 mg/dL (<200); Estimated Glomerular Filt Rate > 60; Glucose Fasting 103 mg/dL (60-99); HDL Cholesterol 58 mg/dL (>40); LDL Cholesterol Calculated 140 mg/dL (<100); Potassium 4.7 mmol/L (3.3-5.1); Sodium 141 mmol/L (135-145); Total Protein 6.5 g/dL (6.5-8.0); Triglycerides 84 mg/dL (<150)
[2024-07-14 10:44] LABS: Thyroid Stimulating Hormone 1.54 uIU/mL (0.32-4.0)
[2024-07-14 10:50] LABS: Prostate Specific Antigen Scr < 0.10 ng/mL (<0.05-4.0)
== END 2024-07-14 07:12 | disposition home or self-care (01) ==
LOC: HO.HMGCLDS 07:11
PROVIDERS: PCP Internal Medicine; Visit Provider Internal Medicine
DX: Z00.00 Encounter for general adult medical examination without abnormal findings (principal); Z13.9 Encounter for screening, unspecified; Z13.220 Encounter for screening for lipoid disorders; Z13.29 Encounter for screening for other suspected endocrine disorder; Z13.0 Encounter for screening for diseases of the blood and blood-forming organs and certain disorders involving the immune mechanism; Z12.5 Encounter for screening for malignant neoplasm of prostate
CPT/HCPCS: 36415; 80053; 80061; 84153; 84443; 85025

== ENCOUNTER 2024-08-10 09:56 | Outpatient (AMB) | payer BC, SELFPAY ==
[2024-08-10 10:16] VITALS: BP 114/64; PULSE 55; BMI 23.6
--- NOTE | 2024-08-10 10:16 | A.OFFVIS_ITS ---
Vital Signs 08/10/24 10:16 Height 5 ft 7 in Weight 151 lb BMI 23.6 BP 114/64 Blood Pressure Location Rt brachial Position Sitting Pulse 55 Intake Visit Reasons: Sebaceous cyst Intake Note: This patient presents for sebaceous cyst. Pt c/o; reports cyst right chest wall, reports skin lesion right elbow and x2 lesion on the back. 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 Accompanied by: Other Relationship Allergies Penicillins [PENICILLINS] Allergy (Severe, Verified 08/10/24 10:28) ANAPHYLAXIS Medication List - Last Reconciled 08/10/24 by Hernandez Saha MD antiarthritic combination no.2 (glucosamine-chondroitin) 1,500 mg PO ciprofloxacin HCl (Cipro) 250 mg PO BID clotrimazole-betamethasone 1-0.05 % 1 appl topical BID 2 weeks doxycycline hyclate 100 mg PO DAILY [naproxen ] omeprazole 20 mg PO QAM potassium gluconate ER mg PO sildenafil 100 mg PO DAILY PRN triamcinolone acetonide 0.1% 1 appl topical DAILY HPI HPI Sebaceous cyst: Details: 64-year-old male referred for a sebaceous cyst on the chest and skin lesions in the back and right elbow. He said he has had this for a long time He says that these lesions bother him. He wants all these lesions including the cyst on the chest removed.. [facility] Medical History Epidermal inclusion cyst Skin lesions Chronic GERD Surgical History Hx of colonoscopy History of bladder surgery History of inguinal hernia repair History of appendectomy History of prostatectomy Family History Mother No problems noted. Father No problems noted. Social History Housing: House Alcohol intake: former Patient Tobacco Use Status: Former Tobacco user Tobacco use type: Cigarette e-Cigarette/Vaping Use: Never Used Second Hand Smoke Exposure: No service: Yes Current occupational status: employed Cognitive needs: No Hearing needs: No Vision needs: Yes (glasses) Review of Systems Const Denies chills and Denies fever(s) Card Denies chest pain, Denies dyspnea and Denies dyspnea on exertion Resp Denies cough, Denies dyspnea and Denies dyspnea on exertion GI Denies hematochezia and Denies change in bowel habits Denies hematuria and Denies difficulty urinating Musc Denies back pain and Denies limited range of motion Neuro Denies focal weakness and Denies convulsions Psych Denies depression and Denies mood swings Physical Exam Const General: comfortable and no acute distress Orientation/consciousness: patient oriented x3 Neck Neck: Yes no lymphadenopathy Chest Other: Cystic induration on the anterior chest to the right, well-defined, not inflamed Resp Auscultation: clear to auscultation bilaterally Cardio Rhythm: regular rhythm GI Palpation (GI): Soft to palpation, nontender and no guarding Back/Spine/Pelvis Other: Skin lesion on the mid back, flat, about 1.5 cm in diameter, with scaling, irregular borders Skin lesion on the mid back a little to the right of the midline, also about 1.5 cm, elevated, pigmented, well-defined Neuro General: patient oriented x3 Extrem Other: Skin lesion of the right elbow, the lipomatous appearing, about 1 cm in size Assessment & Plan Assessment & Plan (1) Skin lesions: Code(s): L98.9 - Disorder of the skin and subcutaneous tissue, unspecified Category: Medical Plan: I explained to him the technique of excision of multiple lesions under local anesthesia. He has a cyst on the anterior chest, 2 skin lesions in the back and a skin lesion of the right elbow. I reviewed the risks including but not limited to bleeding and infections, as well as the benefits and alternatives. He understands and wants to proceed. This will be done here in the office. (2) Epidermal inclusion cyst: Code(s): L72.0 - Epidermal cyst Category: Medical Plan: This will be excised as well at the same time as the skin lesions on the back and the elbow. Coding Level of Care Code New Pt Level 3 (12706) Diagnoses Skin lesions L98.9 Epidermal inclusion cyst L72.0
== END 2024-08-10 10:42 | disposition home or self-care (01) ==
LOC: HO.HGS 09:57
PROVIDERS: PCP Internal Medicine; Visit Provider Surgery
DX: L98.9 Disorder of the skin and subcutaneous tissue, unspecified (principal); L72.0 Epidermal cyst
CPT/HCPCS: 99203

== ENCOUNTER → 2024-08-10 09:56 | Outpatient (BNVA) | payer BC, SELFPAY | PROVIDERS: PCP Internal Medicine; Visit Provider Surgery ==

== ENCOUNTER 2024-08-24 09:14 | Outpatient (REF) | payer BC, SELFPAY | END 2024-08-24 09:15 | disposition home or self-care (01) | LOC: HO.LNP 09:14 | PROVIDERS: PCP Internal Medicine; Visit Provider Surgery | DX: L72.0 Epidermal cyst (principal); L82.1 Other seborrheic keratosis | CPT/HCPCS: 11400; 11402; 88304; 88305 ==

== ENCOUNTER 2024-08-24 09:14 | Outpatient (AMB) | payer BC, SELFPAY ==
--- NOTE | 2024-08-24 09:16 | MHC.OFFVIS ---
Intake Visit Reasons: excision mult Sebaceous cyst Intake Note: Office procedure: excision multiple Sebaceous cyst. Marketing Operations Coordinator Required: No Accompanied by: Other Relationship Allergies Penicillins [PENICILLINS] Allergy (Severe, Verified 08/24/24 09:16) ANAPHYLAXIS Medication List - Last Reconciled 08/24/24 by Hernandez Saha MD antiarthritic combination no.2 (glucosamine-chondroitin) 1,500 mg PO ciprofloxacin HCl (Cipro) 250 mg PO BID clotrimazole-betamethasone 1-0.05 % 1 appl topical BID 2 weeks doxycycline hyclate 100 mg PO DAILY [naproxen ] omeprazole 20 mg PO QAM potassium gluconate ER mg PO sildenafil 100 mg PO DAILY PRN triamcinolone acetonide 0.1% 1 appl topical DAILY HPI HPI excision mult Sebaceous cyst: Details: He is here for excision of multiple lesions under local anesthesia. [facility] Medical History Epidermal inclusion cyst Skin lesions Chronic GERD Surgical History Hx of colonoscopy History of bladder surgery History of inguinal hernia repair History of appendectomy History of prostatectomy Family History Mother No problems noted. Father No problems noted. Social History Housing: House Alcohol intake: former Patient Tobacco Use Status: Former Tobacco user Tobacco use type: Cigarette e-Cigarette/Vaping Use: Never Used Second Hand Smoke Exposure: No service: Yes Current occupational status: employed Cognitive needs: No Hearing needs: No Vision needs: Yes (glasses) Office Procedures Excision Details: He was in supine position. The area of the epidermal inclusion cyst on the anterior chest was prepped and draped. Lidocaine 1% was used for local anesthesia. I made an elliptical incision on the skin surrounding this with a blade 15. This cyst measured about 1.6 cm in diameter. This was carried down through the full-thickness of the skin and subcutaneous fat and I proceeded to excise the entire cystic induration. This was sent as a specimen. I closed the incision with full-thickness nylon 3-0 interrupted sutures. Dressings were applied. There was papillomatous lesion on the right elbow. This measured about 0.5 cm. This area was prepped and draped. Lidocaine 1% was used for local anesthesia. I made an elliptical incision around this lesion with a blade 15. This carried down through the full-thickness of the skin subcutaneous fat to excise this entire area. The incision was closed with a single nylon 3-0 stitch The patient was then placed in prone position. The lesion on the back was prepped and draped. This was on the right side. Lidocaine 1% was used for local anesthesia. I made an elliptical incision of the skin surrounding this. This carried down through the full-thickness of the skin subcutaneous fat to excise this entire lesion. This lesion measured about 1.5 cm. Dressings were applied on all excision sites. The procedure was completed. There were no immediate complications. There was minimal blood loss. [id number]/arms/legs 3.1-4cm (Aggregate area of all 3 lesions was over 3 cm) Procedure code (CPT) selection complete Assessment & Plan Assessment & Plan (1) Skin lesions: Code(s): L98.9 - Disorder of the skin and subcutaneous tissue, unspecified Category: Medical Plan: Excision of a cyst from the anterior chest, a skin lesion from the right elbow, and a skin lesion of the back were done under local anesthesia. Aggregate area was over 3 cm. He was given wound care instructions. He will be seen in the office for removal of sutures. Coding Level of Care Code Procedure Only Diagnoses Skin lesions L98.9 CPT Codes Trunk/Arms/Legs - CPT: 76364-[id number]/arms/legs 3.1-4cm ([id number])
== END 2024-08-24 10:18 | disposition home or self-care (01) ==
PROVIDERS: PCP Internal Medicine; Visit Provider Surgery
DX: L72.0 Epidermal cyst (principal); L82.1 Other seborrheic keratosis
CPT/HCPCS: 11402

== ENCOUNTER 2024-09-07 11:45 | Outpatient (AMB) | payer BC, SELFPAY ==
[2024-09-07 11:46] VITALS: BMI 23.6
--- NOTE | 2024-09-07 11:46 | MHC.OFFVIS ---
Vital Signs 09/07/24 11:46 Height 5 ft 7 in Weight 151 lb BMI 23.6 Intake Visit Reasons: s/p excision mult Sebaceous cyst Intake Note: This patient presents for follow-up assessments status post excision multiple Sebaceous cyst. Pt c/o; reports no complaints. Account Executive Key Accounts Required: No Accompanied by: Self / Same As Patient Allergies Penicillins [PENICILLINS] Allergy (Severe, Verified 09/07/24 11:46) ANAPHYLAXIS HPI HPI s/p excision mult Sebaceous cyst: Details: He underwent excision of a cyst from the anterior wall and skin lesions from the right elbow and the back under local anesthesia last 08/21/2024. He denies complaints and tolerated the procedure well . ON LICENSE OF [facility] Medical History Epidermal inclusion cyst Skin lesions Chronic GERD Surgical History History of surgical removal of skin lesion (~08/24/24) Hx of colonoscopy History of bladder surgery History of inguinal hernia repair History of appendectomy History of prostatectomy Family History Mother No problems noted. Father No problems noted. Social History Housing: House Alcohol intake: former Patient Tobacco Use Status: Former Tobacco user Tobacco use type: Cigarette e-Cigarette/Vaping Use: Never Used Second Hand Smoke Exposure: No service: Yes Current occupational status: employed Cognitive needs: No Hearing needs: No Vision needs: Yes (glasses) Review of Systems Const Denies chills and Denies fever(s) Physical Exam Vital Signs: BMI result Body Mass Index 23.6 Const General: comfortable and no acute distress Skin Other: Excision sites on the anterior chest wall, the right elbow as well as the back are all healing well, not infected, sutures intact Assessment & Plan Assessment & Plan (1) Skin lesions: Code(s): L98.9 - Disorder of the skin and subcutaneous tissue, unspecified Category: Medical Plan: Status post excision of a cyst from the chest wall, a skin lesion from the right elbow and the back under local anesthesia. All incisions are well healed. All his sutures were removed His path report shows a epidermal cyst from the chest wall, and seborrheic keratosis on the right elbow as well as the back He understands the benign nature of this lesions. He can follow up on a p.r.n. basis. Coding Level of Care Code Global (16672) Diagnoses Skin lesions L98.9
== END 2024-09-07 11:54 | disposition home or self-care (01) ==
PROVIDERS: PCP Internal Medicine; Visit Provider Surgery
DX: L98.9 Disorder of the skin and subcutaneous tissue, unspecified (principal)
CPT/HCPCS: 99024

== ENCOUNTER → 2024-09-07 11:45 | Outpatient (BNVA) | payer BC, SELFPAY | PROVIDERS: PCP Internal Medicine; Visit Provider Surgery | DX: L98.9 Disorder of the skin and subcutaneous tissue, unspecified (principal); L72.0 Epidermal cyst ==

== ENCOUNTER 2025-07-19 08:30 | Outpatient (AMB) | payer BC, SELFPAY ==
[2025-07-19 08:32] VITALS: BP 122/72; PULSE 68; RESP 18; TEMP 36.3; O2SAT 96; BMI 25.2
--- NOTE | 2025-07-19 08:32 | A.OFFPC_ITS ---
Vital Signs 07/19/25 08:32 Height 5 ft 7 in Weight 161 lb BMI 25.2 BP 122/72 Blood Pressure Location Lt brachial Position Sitting Respiration 18 Pulse 68 Pulse Source Pulse Oximeter Temp 97.3 F Temp Source Temporal Artery Scan Pulse Oximetry (%) 96 Oxygen Delivery Method Room Air Intake Visit Reasons: Aura DR Medellin/ annual exam Clinical Partner Required: No Accompanied by: Self / Same As Patient Allergies Penicillins (PENICILLINS) Allergy (Severe, Verified 07/19/25 08:45) ANAPHYLAXIS Medication List - Last Reconciled 07/19/25 by MARYURI Santiago antiarthritic combination no.2 (glucosamine-chondroitin) 1,500 mg PO clotrimazole-betamethasone 1-0.05 % 1 appl topical BID 2 weeks mirabegron ER 50 mg PO DAILY [naproxen ] omeprazole 20 mg PO QAM potassium gluconate ER mg PO sildenafil 100 mg PO DAILY PRN triamcinolone acetonide 0.1% 1 appl topical DAILY Tobacco use date assessed: 07/19/25 Fall risk assessment: No Falls in past year Last assessed Fall Risk: 07/19/25 Dental Screening Dental Screen Date: 07/19/25 Did you have a dental visit in the last 12 months?: Yes Did you have a dental problem in the last 6 months where you did not have access to dental care?: No Was dental information given to patient?: Patient has dentist HPI Aura DR Medellin/ annual exam HPI Details The patient is presenting for annual physical and to transition care from Dr. Medellin, who retired Dentist: up to date Eye: last year Snellen: Right: Left: Corrected vision: yes glasses STI screening: Colonoscopy:2022, family hx of colon ca, reports that he is on a 5 years plan Pap Smer:n/a PHQ-9: Flu: given in office today COVID: x4 Tdap:2015-due next year Diet: regular diet Exercise:Walking The patient is a 65-year-old male presenting with a wellness check and management of chronic conditions. He reported experiencing a dry cough last week, which has since improved, though the cause remains unclear. The patient has a history of allergic rhinitis, for which he uses Flonase, which has alleviated symptoms such as eye irritation and blurred vision. He was previously on doxycycline for several years for eye issues, but switched to Flonase this year with positive results. In 2010, the patient underwent robotic prostate cancer surgery and continues to monitor his PSA levels regularly. He coordinates with his primary care provider to include PSA testing in routine blood work to avoid unnecessary visits to the urologist. 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 He has been advised to use ear drops to soften the wax before a follow-up appointment for removal. The patient has a history of hyperlipidemia, with fluctuating LDL cholesterol levels, and has been advised to monitor dietary intake of cholesterol-rich jose ds. He is aware of the risks associated with elevated cholesterol levels, such as plaque buildup in arteries, and is encouraged to maintain a balanced diet. Dr. Hurd for prostectomy follow [facility] Medical History Epidermal inclusion cyst Skin lesions Chronic GERD Surgical History History of surgical removal of skin lesion (~08/24/24) Hx of colonoscopy History of bladder surgery History of inguinal hernia repair History of appendectomy History of prostatectomy Family History Mother No problems noted. Father No problems noted. Social History Housing: House Alcohol intake: former Patient Tobacco Use Status: Former Tobacco user Tobacco use type: Cigarette e-Cigarette/Vaping Use: Never Used Second Hand Smoke Exposure: No service: Yes Current occupational status: employed Cognitive needs: No Hearing needs: No Vision needs: Yes (glasses) Questionnaire PHQ-9 Over the last 2 weeks, how often have you been bothered by any of the following problems? 1. Little interest or pleasure in doing things: not at all 2. Feeling down, depressed, or hopeless: not at all 3. Trouble falling or staying asleep, or sleeping too much: not at all 4. Feeling tired or having little energy: not at all 5. Poor appetite or overeating: not at all 6. Feeling bad about yourself - or that you are a failure or have let yourself or your family down: not at all 7. Trouble concentrating on things, such as reading the newspaper or watching television: not at all 8. Moving or speaking so slowly that other people could have noticed. Or the opposite - being so fidgety or restless that you have been moving around a lot more than usual: not at all 9. Thoughts that you would be better off or of hurting yourself in some way: not at all Total score: 0 Source: Developed by Drs. Manuel Sparks, Sarina Garcia, Ralph Valencia and colleagues, with an educational robert from [employer]. Thrive Questionnaire Date Thrive assessed: 07/13/25 I am a: Patient What is your living situation today?: I have a steady place to live Within the past 12 months, did the food you bought not last and you didn't have the money to get more?: Never true Within the past 12 months, did you worry whether your food would run out before you got money to buy more?: Never true Do you have trouble paying for medicines?: No Do you have trouble getting transportation to medical appointments?: No Do you have trouble paying your heating and electricity bill?: No Do you have trouble taking care of your child, family member or friend?: No Do you have trouble with day-to-day activities such as bathing, preparing meals, shopping, managing finances, etc.?: No Are you currently unemployed and looking for a job?: No Are you interested in more education?: No Please select the resources that you would like help with: None Currently or been in a relationship where the following occur: No concerns reported THRIVE Score: 0 AUDIT C Alcohol Use Questionnaire (AUDIT-C) 1. How often do you have a drink containing alcohol?: Never 3. How often do you have six or more drinks on one occasion?: Never Total Score: 0 TAMIA-7 AMB Questionnaire TAMIA-7 Date TAMIA - 7 assessed: 07/13/24 Feeling nervous, anxious, or on edge: 0 = Not at all Not being able to stop or control worryin = Not at all Worrying too much about different things: 0 = Not at all Trouble relaxin = Not at all Being so restless that it is hard to sit still: 0 = Not at all Becoming easily annoyed or irritable: 0 = Not at all Feeling afraid as if something awful might happen: 0 = Not at all Total TAMIA-7 score (0-4 normal; 5-9 mild; 10-14 moderate; 15-21 severe): 0 Source: Developed by Drs. Manuel Sparks, Sarina Garcia, Ralph Valencia and colleagues, with an educational robert from [employer]. Review of Systems Const Denies headache(s) Eyes Denies loss of vision ENT Denies vertigo, Denies dizziness, Denies headache(s) and Denies sore throat Card Denies chest pain, Denies leg edema and Denies lightheadedness Resp Denies cough, Denies hemoptysis and Denies wheezing GI Denies abdominal pain, Denies melena, Denies constipation, Denies diarrhea and Denies vomiting Denies dysuria, Denies urinary frequency and Denies urinary urgency Musc Denies arthralgias, Denies joint swelling, Denies numbness and Denies tingling Neuro Denies Abnormal speech present, Denies behavioral changes, Denies vertigo, Denies dizziness, Denies headache(s), Denies loss of vision, Denies memory loss, Denies numbness and Denies tingling Psych Denies anxiety, Denies behavioral changes, Denies depression, Denies memory loss and Denies panic attacks Paco/Lymph Denies easy bleeding and Denies easy bruising Aller/Immun Denies wheezing Physical exam (Primary Care) Vital Signs: Last Vital Signs Temp 97.3 F 07/19/25 08:32 Pulse 68 07/19/25 08:32 Resp 18 07/19/25 08:32 BP 122/72 07/19/25 08:32 Pulse Ox 96 07/19/25 08:32 Oxygen Delivery Method Room Air 07/19/25 08:32 BMI result Body Mass Index 25.2 Tobacco/Smoking Status: Tobacco use Status Tobacco use date assessed 07/19/25 07/19/25 08:36 Patient Tobacco Use Status Former Tobacco user 07/19/25 08:36 Tobacco use type Cigarette 07/19/25 08:36 e-Cigarette/Vaping Use Never Used 07/19/25 08:36 PHQ-9: PHQ-9 Score PHQ-9: Total score 0 07/19/25 09:17 Thrive Assessment: Date of Thrive Assessment Date Thrive assessed 07/13/25 07/19/25 08:36 Currently or been in a relationship where the following occur: No concerns reported Const General: healthy appearing, no acute distress, alert and awake Nutritional Appearance: well nourished Orientation/consciousness: oriented to person, oriented to place and oriented to time HENMT Ears: TM normal on the right, Abnormal EAC present cerumen impaction on the left and unable to visualize TM on the left General nose exam: Normal nasal mucous membranes and turbinates present Eyes Conjunctivae: conjunctivae normal Sclerae: sclerae normal Pupils: Equal, round and reactive pupils present Neck Neck: Yes no lymphadenopathy and Yes no JVD Thyroid: Thyroid normal Carotids: no bruits Resp Effort & Inspection: normal respiratory effort and not tachypneic Auscultation: no crackles, no rales, no rhonchi and no wheezes Cardio Rate: regular rate Rhythm: regular rhythm Heart sounds: no murmurs and normal S1 and S2 GI Palpation (GI): Soft to palpation, nontender, no hepatomegaly and no splenomegaly Auscultation: normal bowel sounds General: Yes no CVA tenderness Back/Spine/Pelvis Back: no CVA tenderness Skin General skin exam: no rashes or lesions noted and dry skin Neuro General: oriented to person, oriented to place and oriented to time Cranial nerves: Yes Equal, round and reactive pupils present Speech: No Abnormal speech present Gait exam (Neuro): Normal gait present Motor exam (neuro): 5/5 motor strength present throughout and no tremor noted Deep tendon reflexes (DTR's): Right triceps reflex intensity grade: 2+, Left triceps reflex intensity grade: 2+, Rt Biceps (C5, C6): 2+, Left biceps reflex intensity grade: 2+, Right brachioradialis reflex intensity grade: 2+, Left brachioradialis reflex intensity grade: 2+, Right patellar reflex intensity grade: 2+ and Left patellar reflex intensity grade: 2+ Extrem Right upper extremity: full ROM Left upper extremity: full ROM Right lower extremity: full ROM; no edema Left lower extremity: full ROM; no edema Psych Mental Status: mental status grossly normal Speech and movement: Normal speech and movement present Affect: normal affect Attitude: cooperative Thought process: Normal thought process present Office Procedures Flu Questionnaire Does the patient have a severe egg allergy?: No Does the patient have severe life threatening allergies?: No Does the patient have a fever or illness today?: No Has the patient ever had Guillain-Russell Syndrome?: No Has the patient ever had any past reaction to a flu shot?: No Immunizations Fluarix [id number] (PF) 45 mcg (15 mcg x 3)/0.5 mL IM syringe Performing Provider: MARYURI Santiago [facility] Administered by: JAYCE Gay on 07/19/25 09:17 Dose Route Admin Location Dispensed Lot Number Expiration Date NDC Steam [employer] Helper 0.5 mL IM Left Deltoid 0.5 mL [id number] 04/05/26 [id number] [facility] VIS Given Date VIS Provided VIS Publication Date 07/19/25 Single Vaccine 24 Eligibility Eligibility Date Funding Source Not [facility] Eligible 07/19/25 Private Coding Level of Care Code Est Pt Prev Care >65y(82276) Diagnoses Physical exam Z00.00 History of prostate cancer Z85.46 Chronic GERD K21.9 Hyperlipidemia, unspecified hyperlipidemia type E78.5 Hyperlipidemia type: unspecified Impacted cerumen of left ear H61.22 Laterality: left Time Spent (min) 37 Assessment & Plan Assessment & Plan (1) Physical exam: Code(s): Z00.00 - Encounter for general adult medical examination without abnormal findings Category: Medical Plan: Preventative guidelines reviewed with the patient. Labs ordered for the patient to complete as soon as possible. Patient had colonoscopy in 2022, due for repeat in 2027. Flu vaccine given in office today. (2) History of prostate cancer: Code(s): Z85.46 - Personal history of malignant neoplasm of prostate Category: Medical Plan: Patient had prostatectomy in 2010, we will continue to monitor PSA Follow up with Urology as scheduled (3) Chronic GERD: Comment: cont same meds; Code(s): K21.9 - Gastro-esophageal reflux disease without esophagitis Category: Medical Plan: Do not eat meals or drink carbonated beverages within 3 hr of bedtime Decrease the amount of fried, fatty, and spicy foods to decrease gastric acid production Raise the head of the bed using 4 to 6-inch blocks, especially if nocturnal symptoms are present Lose weight if indicated; avoid tight-fitting clothing, especially around the waist Avoid foods that relax the Lower esophageal sphincter (chocolate, peppermint, high-fat foods etc.,) Continue omeprazole 20 mg q.a.m. (4) HLD (hyperlipidemia): Code(s): E78.5 - Hyperlipidemia, unspecified Category: Medical Qualifiers: Hyperlipidemia type: unspecified Qualified Code(s): E78.5 - Hyperlipidemia, unspecified Plan: triglycerides 84, total cholesterol 140, HDL 58, on 07/14/24 Reinforced low-cholesterol diet and activity as tolerated We will repeat lipid panel (5) Cerumen impaction: Code(s): H61.20 - Impacted cerumen, unspecified ear Category: Medical Qualifiers: Laterality: left Qualified Code(s): H61.22 - Impacted cerumen, left ear Plan: Debrox ear drops ordered and patient was instructed to make follow up appointment for ear flushing Orders: Orders Influenza [id number] Immunization Today Z23 - Encounter for immunization Comprehensive Parkin. Panel Fast Today E78.5 - Hyperlipidemia, unspecified, K21.9 - Gastro-esophageal reflux disease without esophagitis, Z00.00 - Encounter for general adult medical examination without abnormal findings, Z85.46 - Personal history of malignant neoplasm of prostate Lipid Panel Today E78.5 - Hyperlipidemia, unspecified, K21.9 - Gastro- esophageal reflux disease without esophagitis, Z00.00 - Encounter for general adult medical examination without abnormal findings, Z85.46 - Personal history of malignant neoplasm of prostate Vitamin D 25-OH Total Today E78.5 - Hyperlipidemia, unspecified, K21.9 - Gastro-esophageal reflux disease without esophagitis, Z00.00 - Encounter for general adult medical examination without abnormal findings, Z85.46 - Personal history of malignant neoplasm of prostate Complete Blood Count Auto Diff Today E78.5 - Hyperlipidemia, unspecified, K21.9 - Gastro-esophageal reflux disease without esophagitis, Z00.00 - Encounter for general adult medical examination without abnormal findings, Z85.46 - Personal history of malignant neoplasm of prostate UA CC w/rflx Micro + Cult Today E78.5 - Hyperlipidemia, unspecified, K21.9 - Gastro-esophageal reflux disease without esophagitis, Z00.00 - Encounter for general adult medical examination without abnormal findings, Z85.46 - Personal history of malignant neoplasm of prostate TSH reflex Free T4 Today E78.5 - Hyperlipidemia, unspecified, K21.9 - Gastro- esophageal reflux disease without esophagitis, Z00.00 - Encounter for general adult medical examination without abnormal findings, Z85.46 - Personal history of malignant neoplasm of prostate PSA,Total (Free>4and<10) Today E78.5 - Hyperlipidemia, unspecified, K21.9 - Gastro-esophageal reflux disease without esophagitis, Z00.00 - Encounter for general adult medical examination without abnormal findings, Z85.46 - Personal history of malignant neoplasm of prostate Medications: New carbamide peroxide 6.5% (Debrox) 5 drps otic (ears) Q12H 15 mL 0RF 4 days
--- OUTSIDE RECORDS SUMMARY | 2025-07-19 08:33 | XMS_ITS | Patient Health Record ---
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 Name Role Phone Alberto Medellin MD Primary Care Provider Manuel Quinones Unavailable [phone] Allergies Allergen (clinical drug ingredient) Drug/Non Drug Allergy documented on EMR Reaction Allergy Type Onset Date Status Penicillin Unknown Drug Allergy Active Reason For Referral No Information Medications Medication SIG (Take, Route, Frequency, Duration) Notes Start Date End Date Status potassium Active Glucosamine Active Naproxen Active Doxycycline Hyclate 100 MG TAKE ONE TABL ET BY MOUTH EVERY DAY Oral; Duration: 90 Active Sildenafil Citrate 100 MG TAKE 1 TABLET BY MOUTH 30 MINUTES TO 4 HOURS BEFORE SEXUAL ACTIVITY ONCE DAILY NEEDED Oral; Duration: 30 Active Omeprazole 20 MG TAKE ONE CAPSULE BY MOUTH EVERY MORNING Oral; Duration: 90 Active Immunizations Vaccine Route Administration Date Status Comme nts Flu vaccine no Preserv 3 and > Unknown 07/07/2015 Admin istered Influenza Unknown 08/21/2022 Administered Social History Alcohol Screen Question Answer Notes Did you have a drink containing alcohol in the p ast year? No Points 0 Interpretation Negative Section Notes: Nonsmoker; no sig alcohol Nonsmoker; no sig alcohol Problems Problem Type SNOMED Code ICD Code Onset Dates Problem Status W/U Status Risk Notes Problem Gastro-esophageal reflux disease without esophagitis (118057651) Gastro-esophageal reflux disease without esophagitis (K21.9) Active confirmed Problem Screening for malignant neoplasm of colon (591284678) Encounter for screening for malignant neoplasm of colon (Z12.11) Active confirmed Problem History of adenomatous polyp of colon (819322790) History of adenomatous polyp of colon (Z86.010) Active confirmed Problem History of polyp of colon (situation) (196731167) Personal history of colonic polyps (Z86.010) Active confirmed Problem Diverticular disease of colon (651534102) Diverticulosis of large intestine without perforation or abscess without bleeding (K57.30) Active confirmed Problem Screening for malignant neoplasm of rectum (179037487) Encounter for screening for malignant neoplasm of rectum (Z12.12) Active confirmed Problem Preprocedural examination (520063533486930) Preprocedural examination (Z01.818) Active confirmed Problem History of polyp of colon (situation) (762203679) History of colon polyps (Z86.010) Active confirmed Problem Family history of malignant neoplasm of gastrointestinal tract (264003494) Family history of colon cancer in mother (Z80.0) Active confirmed Plan Of Treatment Future Test Test Name Order Date COLONOSCOPY 09/27/2015 COLONOSCOPY 10/02/2022 Insurance Providers Payer Name Payer Address Payer Phone Subscriber Number Group Number Insured Name Patient Relationship to Insured Coverage Start Date Coverage End Date [facility] [address] [place], [place] [id number] ALEXANDER LEUNG Self - patient is the insured Medical (General) History Medical History History ICD Code GERD--upper endoscopy in Oct with a minimal hiatal hernia, but no significant esophagitis nor Wallace's esophagus Denies MD,DM,CVA,Lung disease,renal dise ase Prostate cancer-2010--surgery as below Screening colonoscopy in Oct with a single tubular adenoma, diverticulosis, and internal hemorrhoids Negative screening colonoscopy in 11/2015 Surgical History Surgery Date(Month/Year) Appendectomy Hernia surgery--umbilical Prostatectomy for cancer-laparascopic--2 011 Bladder sling in approx for 2011
== END 2025-07-19 09:19 | disposition home or self-care (01) ==
LOC: HO.HMCH 08:31
DX: Z00.00 Encounter for general adult medical examination without abnormal findings (principal); Z85.46 Personal history of malignant neoplasm of prostate; K21.9 Gastro-esophageal reflux disease without esophagitis; E78.5 Hyperlipidemia, unspecified; H61.22 Impacted cerumen, left ear; Z23 Encounter for immunization

== ENCOUNTER → 2025-07-19 08:30 | Outpatient (BNVA) | payer BC, SELFPAY | DX: Z00.00 Encounter for general adult medical examination without abnormal findings (principal); Z23 Encounter for immunization; Z13.30 Encounter for screening examination for mental health and behavioral disorders, unspecified; K21.9 Gastro-esophageal reflux disease without esophagitis; E78.5 Hyperlipidemia, unspecified; H61.22 Impacted cerumen, left ear; J30.9 Allergic rhinitis, unspecified; Z85.46 Personal history of malignant neoplasm of prostate; Z79.899 Other long term (current) drug therapy | CPT/HCPCS: 90471; 90656; 96127 ==

== ENCOUNTER 2025-09-28 06:01 | Outpatient (REF) | payer BC, SELFPAY ==
--- OUTSIDE RECORDS SUMMARY | 2025-09-28 06:03 | XMS_ITS | Patient Health Record ---
Author Organization [facility] Address [address] [place] [address] Care Team Providers Care Suction Drum Drier Operator Name Role Phone Alberto Medellin MD Primary Care Provider Manuel Quinones Unavailable [phone] Allergies Allergen (clinical drug ingredient) Drug/Non Drug Allergy documented on EMR Reaction Allergy Type Onset Date Status Penicillin Unknown Drug Allergy Active Reason For Referral No Information Medications Medication SIG (Take, Route, Frequency, Duration) Notes Start Date End Date Status potassium Active Glucosamine Active Naproxen Active Doxycycline Hyclate 100 MG Tablet TAKE ONE TABLET BY MOUTH EVERY DAY Oral; Duration: 90 Active Sildenafil Citrate 100 MG Tablet TAKE 1 TABLET BY MOUTH 30 MINUTES TO 4 HOURS BEFORE SEXUAL ACTIVITY ONCE DAILY NEEDED Oral; Duration: 30 Active Omeprazole 20 MG Capsule Delayed Release TAKE ONE CAPSULE BY MOUTH EVERY MORNING Oral; Duration: 90 Active Immunizations Vaccine Route Administration Date Status Comme nts Flu vaccine no Preserv 3 and > Unknown 07/07/2015 Admin istered Influenza Unknown 08/21/2022 Administered Social History Social History Drugs/Alcohol: Social Info Question Answer Notes Alcohol Screen Did you have a drink containing alcohol in the past year? 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 Section Notes: Nonsmoker; no sig alcohol Nonsmoker; no sig alcohol Problems Problem Type SNOMED Code ICD Code Onset Dates Problem Status W/U Status Risk Notes Problem Gastro-esophageal reflux disease without esophagitis (404754946) Gastro-esophageal reflux disease without esophagitis (K21.9) Active confirmed Problem Screening for malignant neoplasm of colon (213975003) Encounter for screening for malignant neoplasm of colon (Z12.11) Active confirmed Problem History of adenomatous polyp of colon (690199075) History of adenomatous polyp of colon (Z86.010) Active confirmed Problem History of polyp of colon (situation) (965573682) Personal history of colonic polyps (Z86.010) Active confirmed Problem Diverticular disease of colon (446073726) Diverticulosis of large intestine without perforation or abscess without bleeding (K57.30) Active confirmed Problem Screening for malignant neoplasm of rectum (479228294) Encounter for screening for malignant neoplasm of rectum (Z12.12) Active confirmed Problem Preprocedural examination (048967280178933) Preprocedural examination (Z01.818) Active confirmed Problem History of polyp of colon (situation) (813153957) History of colon polyps (Z86.010) Active confirmed Problem Family history of malignant neoplasm of gastrointestinal tract (829329288) Family history of colon cancer in mother (Z80.0) Active confirmed Plan Of Treatment Future Test Test Name Order Date COLONOSCOPY 09/27/2015 COLONOSCOPY 10/02/2022 Insurance Providers Payer Name Payer Address Payer Phone Subscriber Number Group Number Insured Name Patient Relationship to Insured Coverage Start Date Coverage End Date [facility] [address] [place], [place] [id number] ALEXANDER LEUNG Self - patient is the insured Medical (General) History Medical History History ICD Code GERD--upper endoscopy in Oct with a minimal hiatal hernia, but no significant esophagitis nor Wallace's esophagus Denies [place],DM,CVA,Lung disease,renal dise ase Prostate cancer-2010--surgery as below Screening colonoscopy in Oct with a single tubular adenoma, diverticulosis, and internal hemorrhoids Negative screening colonoscopy in 11/2015 Surgical History Surgery Date(Month/Year) Appendectomy Hernia surgery--umbilical Prostatectomy for cancer-laparascopic--2 011 Bladder sling in approx for 2011
[2025-09-28 10:16] LABS: Appearance Urine Clear; Glucose Urine UA Negative (Negative); PH 5.5 (5.0-9.0); Specific Gravity - Urine 1.025 (1.005-1.025)
[2025-09-28 10:41] LABS: MANUAL DIFF FLAG NO
[2025-09-28 10:47] LABS: Hematocrit 48.8 % (42.0-52.0); Hemoglobin 16.0 g/dl (14.0-18.0); Imm Gran Abs Auto 0.04 X10*3/uL (0.00-0.03); Imm Gran Pct Auto 0.9 % (0.0-0.4); Lymphocytes Absolute Auto 1.2 X10*3/uL (1.2-4.9); Mean Corpuscular HGB Conc 32.8 g/dl (31.0-36.0); Mean Corpuscular Hemoglobin 29.4 pg (27.0-33.0); Mean Corpuscular Volume 89.7 fL (80.0-98.0); NRBC Abs Auto 0.000 X10*3/uL (0.0-0.012); NRBC Pct Auto 0.0 /100WBC (0.0-0.2); Platelet Count 274 X10*3/uL (160-400); Red Blood Count 5.44 X10*6/uL (4.60-5.80); White Blood Count 4.4 X10*3/uL (4.8-10.8)
[2025-09-28 11:18] LABS: Alanine Aminotransferase 25 U/L (0-40); Albumin Level 4.2 g/dL (3.5-5.0); Alkaline Phosphatase 74 U/L (39-117); Anion Gap 11 (12-20); Aspartate Amino Transferase 27 U/L (5-37); Blood Urea Nitrogen 15 mg/dL (9-16); Calcium 9.2 mg/dL (8.4-10.2); Carbon Dioxide 27 mmol/L (22-29); Chloride 110 mmol/L (96-108); Cholesterol 203 mg/dL (<200); Estimated Glomerular Filt Rate 54; HDL Cholesterol 51 mg/dL (>40); Potassium 4.6 mmol/L (3.3-5.1); Sodium 143 mmol/L (135-145); Total Protein 6.5 g/dL (6.5-8.0); Triglycerides 71 mg/dL (<150)
[2025-09-28 11:25] LABS: PSA,Total (Free>4and<10) < 0.10 ng/mL (0.00-4.00)
== END 2025-09-28 06:02 | disposition home or self-care (01) ==
LOC: HO.HMGCLDS 06:01
DX: Z00.00 Encounter for general adult medical examination without abnormal findings (principal); E78.5 Hyperlipidemia, unspecified; K21.9 Gastro-esophageal reflux disease without esophagitis; Z85.46 Personal history of malignant neoplasm of prostate; Z12.5 Encounter for screening for malignant neoplasm of prostate; Z13.21 Encounter for screening for nutritional disorder
CPT/HCPCS: 36415; 80053; 80061; 81003; 82306; 84153; 84443; 85025

== ENCOUNTER 2025-09-29 09:17 | Outpatient (AMB) | payer BC, SELFPAY ==
--- OUTSIDE RECORDS SUMMARY | 2025-09-29 09:22 | XMS_ITS | Patient Health Record ---
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 Section Notes: Nonsmoker; no sig alcohol Nonsmoker; no sig alcohol Problems Problem Type SNOMED Code ICD Code Onset Dates Problem Status W/U Status Risk Notes Problem Gastro-esophageal reflux disease without esophagitis (648423537) Gastro-esophageal reflux disease without esophagitis (K21.9) Active confirmed Problem Screening for malignant neoplasm of colon (500555623) Encounter for screening for malignant neoplasm of colon (Z12.11) Active confirmed Problem History of adenomatous polyp of colon (376159530) History of adenomatous polyp of colon (Z86.010) Active confirmed Problem History of polyp of colon (situation) (574797782) Personal history of colonic polyps (Z86.010) Active confirmed Problem Diverticular disease of colon (535231130) Diverticulosis of large intestine without perforation or abscess without bleeding (K57.30) Active confirmed Problem Screening for malignant neoplasm of rectum (887934101) Encounter for screening for malignant neoplasm of rectum (Z12.12) Active confirmed Problem Preprocedural examination (010544619276908) Preprocedural examination (Z01.818) Active confirmed Problem History of polyp of colon (situation) (466562954) History of colon polyps (Z86.010) Active confirmed Problem Family history of malignant neoplasm of gastrointestinal tract (100005766) Family history of colon cancer in mother (Z80.0) Active confirmed Plan Of Treatment Future Test Test Name Order Date COLONOSCOPY 09/27/2015 COLONOSCOPY 10/02/2022 Insurance Providers Payer Name Payer Address Payer Phone Subscriber Number Group Number Insured Name Patient Relationship to Insured Coverage Start Date Coverage End Date [facility] [address] [place], [place] [id number] [phone] [id number] ALEXANDER LEUNG Self - patient is the insured Medical (General) History Medical History History ICD Code GERD--upper endoscopy in Oct with a minimal hiatal hernia, but no significant esophagitis nor Wallace's esophagus Denies TX,DM,CVA,Lung disease,renal dise ase Prostate cancer-2010--surgery as below Screening colonoscopy in Oct with a single tubular adenoma, diverticulosis, and internal hemorrhoids Negative screening colonoscopy in 11/2015 Surgical History Surgery Date(Month/Year) Appendectomy Hernia surgery--umbilical Prostatectomy for cancer-laparascopic--2 011 Bladder sling in approx for 2011
[2025-09-29 09:24] VITALS: BP 124/68; PULSE 62; RESP 18; O2SAT 96; BMI 25.1
--- NOTE | 2025-09-29 09:24 | MHC.PC.OV ---
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: No Accompanied by: Self / Same As Patient Allergies Penicillins (PENICILLINS) Allergy (Severe, Verified 09/30/25 16:40) ANAPHYLAXIS Medication List - Last Reconciled 09/30/25 by MARYURI Santiago antiarthritic combination no.2 (glucosamine-chondroitin) 1,500 mg PO carbamide peroxide 6.5% (Debrox) 5 drps otic (ears) Q12H 4 days ciprofloxacin-dexamethasone 0.3-0.1 % 4 drps otic (ear) left BID 7 days clotrimazole-betamethasone 1-0.05 % 1 appl topical BID 2 weeks mirabegron ER 50 mg PO DAILY [naproxen ] omeprazole 20 mg PO QAM potassium gluconate ER mg PO sildenafil 100 mg PO DAILY PRN triamcinolone acetonide 0.1% 1 appl topical DAILY Tobacco use date assessed: 09/29/25 Fall risk assessment: No Falls in past year Last assessed Fall Risk: 09/29/25 Dental Screening Dental Screen Date: 09/29/25 Did you have a dental visit in the last 12 months?: Yes Did you have a dental problem in the last 6 months where you did not have access to dental care?: No Was dental information given to patient?: Patient has dentist HPI ear flush left ear HPI Details question fungal infection, or pseudomonoas ciprodex ear drops ordered HPI Comments History of Present Illness Details The patient is a 65-year-old male presenting for follow-up of a left ear blockage. He has been treating his left ear with ear drops twice a day since last Saturday to soften the cerumen. He reports associated pruritus, which has caused him to wake up at night. He also notes temporary hearing loss after administering the drops. The patient has a history of hypercholesterolemia, which has been an ongoing issue. His LDL has been around 138-140 mg/dL. He denies any personal history of diabetes or any family history of heart attacks. For health maintenance, the patient undergoes PSA monitoring, and his recent result was normal. He underwent fasting blood work and a urine test yesterday. Health Maintenance Recent routine lab work, including a PSA level, was reviewed and found to be normal, apart from cholesterol. The patient is scheduled to follow up in four months for a cholesterol recheck. He will have his next annual physical next year. 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 - Nutrition: He was counseled to reduce his intake of fried foods, pork, red meat, egg yolks, shellfish, and dairy products. Results - Labs: - Lipid Panel: LDL cholesterol is 138 mg/dL. - Prostate-Specific Antigen (PSA): Normal. - Liver Enzymes: Normal. [facility] Medical History Epidermal inclusion cyst Skin lesions Chronic GERD Surgical History History of surgical removal of skin lesion (~08/24/24) Hx of colonoscopy History of bladder surgery History of inguinal hernia repair History of appendectomy History of prostatectomy Family History Mother No problems noted. Father No problems noted. Social History Housing: House Alcohol intake: former Patient Tobacco Use Status: Former Tobacco user Tobacco use type: Cigarette e-Cigarette/Vaping Use: Never Used Second Hand Smoke Exposure: No service: Yes Current occupational status: employed Cognitive needs: No Hearing needs: No Vision needs: Yes (glasses) Questionnaire Thrive Questionnaire Date Thrive assessed: 09/29/25 I am a: Patient What is your living situation today?: I have a steady place to live Within the past 12 months, did the food you bought not last and you didn't have the money to get more?: Never true Within the past 12 months, did you worry whether your food would run out before you got money to buy more?: Never true Do you have trouble paying for medicines?: No Do you have trouble getting transportation to medical appointments?: No Do you have trouble paying your heating and electricity bill?: No Do you have trouble taking care of your child, family member or friend?: No Do you have trouble with day-to-day activities such as bathing, preparing meals, shopping, managing finances, etc.?: No Are you currently unemployed and looking for a job?: No Are you interested in more education?: No Currently or been in a relationship where the following occur: No concerns reported THRIVE Score: 0 TAMIA-7 AMB Questionnaire TAMIA-7 Date TAMIA - 7 assessed: 07/13/24 Source: Developed by Drs. Manuel Sparks, Sarina Garcia, Ralph Valencia and colleagues, with an educational robert from [employer]. Review of Systems Narrative Review of Systems - Ears: Reports left ear blockage, left-sided hearing loss, and pruritus in the left ear. - Neurologic: Denies dizziness. Const Denies body aches, Denies chills, Denies fever(s), Denies headache(s) and Denies poor appetite Eyes Reports no additional complaints ENT Denies dysphagia, Denies dizziness, Denies headache(s) and Denies odynophagia Card Denies chest pain, Denies syncope, Denies edema, Denies irregular heart rhythm, Denies lightheadedness and Denies dyspnea Resp Denies cough and Denies dyspnea GI Denies abdominal pain, Denies constipation, Denies dysphagia, Denies diarrhea, Denies nausea, Denies odynophagia and Denies vomiting Reports no additional complaints Musc Reports no additional complaints and Denies abnormal gait Skin/Breast Reports system reviewed and no additional complaints, except as documented Neuro Denies Abnormal speech present, Denies abnormal gait, Denies dizziness, Denies syncope and Denies headache(s) Psych Reports no additional complaints Physical exam (Primary Care) Vital Signs: Last Vital Signs Pulse 62 09/29/25 09:24 Resp 18 09/29/25 09:24 BP 124/68 09/29/25 09:24 Pulse Ox 96 09/29/25 09:24 Oxygen Delivery Method Room Air 09/29/25 09:24 BMI result Body Mass Index 25.1 Tobacco/Smoking Status: Tobacco use Status Tobacco use date assessed 09/29/25 09/29/25 09:35 Patient Tobacco Use Status Former Tobacco user 09/29/25 09:26 Tobacco use type Cigarette 09/29/25 09:26 e-Cigarette/Vaping Use Never Used 09/29/25 09:26 Thrive Assessment: Date of Thrive Assessment Date Thrive assessed 09/29/25 09/29/25 09:35 Currently or been in a relationship where the following occur: No concerns reported Narrative Physical Exam - Otologic: - Right Ear: Exam was noted to be normal. - Left Ear: The external auditory canal was initially occluded by cerumen. Following irrigation, large plugs of cerumen were removed. The underlying canal wall appeared erythematous, macerated, and imflamed. No significant cerumen remained post-procedure. Const General: healthy appearing, no acute distress, alert and awake Nutritional Appearance: well nourished Orientation/consciousness: oriented to person, oriented to place and oriented to time HENMT Ears: TM normal on the right, Abnormal EAC present cerumen impaction on the left and unable to visualize TM on the left General nose exam: Normal nasal mucous membranes and turbinates present Eyes Conjunctivae: conjunctivae normal Sclerae: sclerae normal Pupils: Equal, round and reactive pupils present Neck Neck: Yes no lymphadenopathy and Yes no JVD Thyroid: Thyroid normal Carotids: no bruits Resp Effort & Inspection: normal respiratory effort and not tachypneic Auscultation: no crackles, no rales, no rhonchi and no wheezes Cardio Rate: regular rate Rhythm: regular rhythm Heart sounds: no murmurs and normal S1 and S2 Skin General skin exam: no rashes or lesions noted and dry skin Neuro General: oriented to person, oriented to place and oriented to time Cranial nerves: Yes Equal, round and reactive pupils present Speech: No Abnormal speech present Gait exam (Neuro): Normal gait present Motor exam (neuro): no tremor noted Extrem Right upper extremity: full ROM Left upper extremity: full ROM Right lower extremity: full ROM; no edema Left lower extremity: full ROM; no edema Psych Mental Status: mental status grossly normal Speech and movement: Normal speech and movement present Affect: normal affect Attitude: cooperative Thought process: Normal thought process present Coding Level of Care Code Est Pt Level 3 (23176) Diagnoses Impacted cerumen of left ear H61.22 Laterality: left Otitis externa of left ear, unspecified chronicity, unspecified type H60.92 Otitis externa type: unspecified type Chronicity: unspecified Laterality: left Hyperlipidemia, unspecified hyperlipidemia type E78.5 Hyperlipidemia type: unspecified Time Spent (min) 29 Assessment & Plan Assessment & Plan (1) Cerumen impaction: Code(s): H61.20 - Impacted cerumen, unspecified ear Category: Medical Qualifiers: Laterality: left Qualified Code(s): H61.22 - Impacted cerumen, left ear (2) Otitis externa: Code(s): H60.90 - Unspecified otitis externa, unspecified ear Category: Medical Qualifiers: Otitis externa type: unspecified type Chronicity: unspecified Laterality: left Qualified Code(s): H60.92 - Unspecified otitis externa, left ear (3) HLD (hyperlipidemia): Code(s): E78.5 - Hyperlipidemia, unspecified Category: Medical Qualifiers: Hyperlipidemia type: unspecified Qualified Code(s): E78.5 - Hyperlipidemia, unspecified Plan Plan Patient was informed and verbally consented to the use of an ambient scribe for clinic note documentation during this visit. 1. Otitis externa The patient presented for left ear blockage. After cerumen removal via irrigation, the ear canal was noted to be irritated, macerated and inflamed, consistent with otitis externa. A second opinion confirmed these findings. With the canal now clear, it is prepared for topical therapy. Ciprodex drops, which include a steroid for inflammation, will be prescribed. The patient is to apply four drops in the left ear twice daily for seven days. For any associated pain, the use of [id number] ibuprofen is recommended. The prescription has been sent to the pharmacy. 2. Cerumen Impaction, Left Ear The patient had pre-treated his left ear with cerumenolytic drops for several days. The ear canal was noted to be occluded on initial examination. Successful ear irrigation and manual removal with lighted curette were performed in the office, removing large plugs of cerumen. No further debridement is needed at this time. 3. Hypercholesterolemia Review of recent labs shows an LDL cholesterol level of 138 mg/dL, which is elevated. Given the absence of other cardiovascular risk factors like diabetes or a family history of heart attacks, management will begin with lifestyle modifications instead of medication. The patient was counseled on a low-cholesterol diet, including limiting fried foods, red meat, egg yolks, shellfish, and dairy products. A follow-up fasting lipid panel will be checked in four months to assess the response to these dietary changes. He was also advised to increase his water intake. Orders: Orders Lipid Panel 4 Months E78.5 - Hyperlipidemia, unspecified Medications: New ciprofloxacin-dexamethasone 0.3-0.1 % 4 drps otic (ear) left BID 7.5 mL 0RF 7 days Patient Instructions: Return in 4 months
== END 2025-09-29 10:21 | disposition home or self-care (01) ==
LOC: HO.HMCH 09:18
DX: H61.22 Impacted cerumen, left ear (principal); H60.92 Unspecified otitis externa, left ear; E78.5 Hyperlipidemia, unspecified